=== PATIENT | male | born 1965 | race Caucasian/White ===

== ENCOUNTER 2018-02-09 06:43 | Emergency (ER) | payer MEDICAID ==
[~2018-02-09] VITALS: Ht 182.9 cm; Wt 68.0 kg
[2018-02-09] MEDS ORDERED: dexamethasone 4mg/ml inj IM SCH (07:05)
[2018-02-09] MEDS ORDERED: PENI500T2 PO (07:43)
[2018-02-09 07:51] VITALS: BP 130/84
== END 2018-02-09 07:53 | disposition home or self-care (01) ==
LOC: ER 06:44
DX: J02.0 Streptococcal pharyngitis (principal)
CPT/HCPCS: 87880; 96372; 99283; J1100

== ENCOUNTER 2019-01-20 14:10 | Emergency (ER) | payer MEDICAID ==
[~2019-01-20] VITALS: Ht 182.9 cm; Wt 77.3 kg
[2019-01-20 14:21] VITALS: BP 129/82
[2019-01-20] MEDS ORDERED: PERM60CR19 TP (15:11)
== END 2019-01-20 15:18 | disposition home or self-care (01) ==
LOC: ER 14:11
DX: B86 Scabies (principal); Z79.899 Other long term (current) drug therapy
CPT/HCPCS: 99283

== ENCOUNTER 2020-09-04 07:00 | Emergency (ER) | payer MEDICAID ==
[~2020-09-04] VITALS: Ht 182.9 cm; Wt 65.5 kg
[~2020-09-04 07:00] MED LIST: PERM60CR19 TP
[2020-09-04 07:06] VITALS: BP 116/74
[2020-09-04] MEDS ORDERED: amox tr/potassium clavulanate 875/125mg TAB PO ONE (07:25)
[2020-09-04] MEDS ORDERED: AMOX-422 PO (07:26)
== END 2020-09-04 07:34 | disposition home or self-care (01) ==
LOC: ER 07:01
DX: I89.1 Lymphangitis (principal); F17.210 Nicotine dependence, cigarettes, uncomplicated; Z59.0 Homelessness; Z79.899 Other long term (current) drug therapy
CPT/HCPCS: 99283

== ENCOUNTER 2022-06-15 10:29 | Emergency (ER) | payer MEDICAID ==
[~2022-06-15] VITALS: Ht 182.9 cm; Wt 70.5 kg
[2022-06-15 10:43] VITALS: BP 123/87
[2022-06-15] MEDS ORDERED: TETanus/Pertussis (Acell)/Diphther VAC/PF (Tdap-Adult) 0.5ml syringe IMVAC ONE (12:25)
[2022-06-15] MEDS ORDERED: SULF1TAB49 PO (12:29)
[2022-06-15] MEDS ORDERED: LIDOCAINE 2%/EPI 1:100,000 inj. Multi-dose 20 ML VIAL IJ ONE (12:37)
== END 2022-06-15 12:58 | disposition home or self-care (01) ==
LOC: ER 10:29
DX: L02.31 Cutaneous abscess of buttock (principal); Z59.00 Homelessness unspecified
CPT/HCPCS: 10060; 90471; 90715; 99283; A6449